=== PATIENT | female | born 1970 | race Caucasian/White ===

== ENCOUNTER 2023-12-30 13:25 | Emergency (ER) | payer MEDICAID ==
[~2023-12-30] VITALS: Ht 160 cm; Wt 79.4 kg
[2023-12-30 13:32] VITALS: BP 137/87; PULSE 90; RESP 22; TEMP 98.3; O2SAT 99
[2023-12-30] MEDS ORDERED: NAPR-1704 PO (15:43)
[2023-12-30 15:49] VITALS: BP 137/87; PULSE 90; RESP 22; TEMP 98.3; O2SAT 99
[2023-12-30] MEDS: KETOROLAC 30 MG/ML VIAL IM ONE (15:53)
[2023-12-30] MEDS ORDERED: KETOROLAC 30 MG/ML VIAL ONE (15:53)
== END 2023-12-30 16:33 | disposition home or self-care (01) ==
LOC: MED 13:25
DX: D17.22 Benign lipomatous neoplasm of skin and subcutaneous tissue of left arm (principal); Z79.899 Other long term (current) drug therapy
CPT/HCPCS: 73030; 96372; 99284; J1885